=== PATIENT | male | born 1960 | race Caucasian/White ===

== ENCOUNTER → 2017-12-18 10:33 | Outpatient (CLI) | payer BC, SELFPAY ==
[2017-12-18 11:56] LABS: Cholesterol 230 mg/dL (50-200); HDL Cholesterol 41 mg/dL (40-60); TSH (W/Ref FT4) 0.45 uIU/mL (0.358-3.74); Triglyceride 173 mg/dL (30-150)
[2017-12-18 14:03] LABS: LDL CHOLESTEROL 154 mg/dL (<100)
[2017-12-18 14:12] LABS: Uric Acid 7.8 mg/dL (3.5-7.2)
== END ==
PROVIDERS: PCP Family Medicine; Visit Provider Family Medicine
DX: E78.5 Hyperlipidemia, unspecified (principal); E03.9 Hypothyroidism, unspecified; M1A.0790 Idiopathic chronic gout, unspecified ankle and foot, without tophus (tophi)
CPT/HCPCS: 80061; 83721; 84443; 84550

== ENCOUNTER 2018-03-19 15:31 | Outpatient (REF) | payer BC, SELFPAY ==
[2018-03-19 20:41] LABS: Anion Gap 7.6 mmol/L (3-11); BUN 17 mg/dL (7-18); CO2 29.4 mmol/L (21.0-32.0); CREATININE 1.11 mg/dL (0.70-1.30); Calcium 9.5 mg/dL (8.5-10.1); Chloride 102 mmol/L (98-107); Glucose 100 mg/dL (70-100); Potassium 4.1 mmol/L (3.5-5.1); Sodium 139 mmol/L (136-145); TSH 0.27 uIU/mL (0.358-3.74)
== END 2018-03-19 15:51 ==
LOC: NCHCN 15:31
PROVIDERS: PCP Physician Assistant Medical; Visit Provider Physician Assistant Medical
DX: N28.9 Disorder of kidney and ureter, unspecified (principal); E03.9 Hypothyroidism, unspecified
CPT/HCPCS: 80048; 84443

== ENCOUNTER 2018-09-08 12:14 | Outpatient (REF) | payer BC, SELFPAY ==
[2018-09-08 19:37] LABS: Anion Gap 8.1 mmol/L (3-11); BUN 16 mg/dL (7-18); CO2 27.9 mmol/L (21.0-32.0); CREATININE 1.11 mg/dL (0.70-1.30); Calcium 8.5 mg/dL (8.5-10.1); Chloride 105 mmol/L (98-107); Cholesterol 246 mg/dL (50-200); Glucose 95 mg/dL (70-100); HDL Cholesterol 41 mg/dL (40-60); LDL CHOLESTEROL 150 mg/dL (<100); Potassium 4.3 mmol/L (3.5-5.1); Sodium 141 mmol/L (136-145); TSH 3.63 uIU/mL (0.358-3.74); Triglyceride 235 mg/dL (30-150)
== END 2018-09-08 12:34 ==
LOC: NCHCN 12:14
PROVIDERS: PCP Physician Assistant Medical; Visit Provider Physician Assistant Medical
DX: Z00.00 Encounter for general adult medical examination without abnormal findings (principal); E03.9 Hypothyroidism, unspecified; E78.5 Hyperlipidemia, unspecified
CPT/HCPCS: 80048; 80061; 83721; 84443

== ENCOUNTER 2019-10-21 02:05 | Outpatient (CLI) | payer BC, SELFPAY ==
--- NOTE | 2019-10-21 | DI.RAD_ITS ---
EXAM: XR CHEST 2V PA LATERAL CLINICAL HISTORY: GOITER, SUBSTERNAL E04.8, TECHNIQUE: COMPARISON: CR PORTABLE CHEST ONE VIEW from 08/20/2016 FINDINGS: The heart is not enlarged. There are multiple sternal sutures and mediastinal vascular clips consist ent with prior CABG surgery. Lungs are clear. No pleural effusion. 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 No gross superior mediastinal mass identified by plain f ilm criteria, additional evaluation with CT could be obtained if clinically indicated. IMPRESSION: No evidence of acute process.
== END 2019-10-21 02:25 ==
PROVIDERS: PCP Internal Medicine; Visit Provider Physician Assistant
DX: E04.8 Other specified nontoxic goiter (principal); Z95.1 Presence of aortocoronary bypass graft
CPT/HCPCS: 71046

== ENCOUNTER 2019-10-21 08:03 | Outpatient (CLI) | payer BC, SELFPAY ==
[2019-10-21 10:21] LABS: Abs Immature Grans 0.03 k/cumm (0.0-0.09); Absolute Basophil Count 0.02 k/cumm (0.0-0.2); Absolute Eosinophil Count 0.11 k/cumm (0.0-0.7); Absolute Lymphocyte Count 2.06 k/cumm (1.2-3.4); Absolute Monocyte Count 0.59 k/cumm (0.11-0.7); Absolute Neutrophil Count 5.06 k/cumm (1.2-6.7); Basophils % 0.3; Eosinophils % 1.4; HCT 44.4 % (40.0-50.0); HGB 14.9 g/dL (13.5-17.5); Immature Grans % 0.4 %; Lymphocytes % 26.2; Mean Corp. HGB Concentration 33.6 g/dL (32.0-36.0); Mean Corpuscular Hemoglobin 27.5 pg (27.0-33.0); Mean Corpuscular Volume 82.1 fL (80-95); Mean Platelet Volume 9.3 fL (8.0-11.0); Monocytes % 7.5; Neutrophils % 64.2; Platelet Count 300 x1000/uL (130-400); RBC 5.41 m/cumm (4.50-6.00); RBC Distribution Width 13.9 % (11.8-14.1); White Blood Cell Count 7.87 k/cumm (4.4-10.8)
[2019-10-21 10:31] LABS: Hemoglobin A1C 5.9 % (3.8-5.6)
[2019-10-21 11:34] LABS: ALT 88 U/L (16-63); AST 44 U/L (15-37); Alkaline Phosphatase 109 U/L (46-116); Anion Gap 2.9 mmol/L (3-11); BUN 14 mg/dL (7-18); Bilirubin, Total 0.9 mg/dL (0.2-1.0); CO2 31.1 mmol/L (21.0-32.0); CREATININE 1.11 mg/dL (0.70-1.30); Calcium 8.6 mg/dL (8.5-10.1); Calculated LDL 156 mg/dL (<100); Chloride 107 mmol/L (98-107); Cholesterol 245 mg/dL (<200); Glucose 101 mg/dL (74-106); HDL Cholesterol 44 mg/dL (40-60); Sodium 141 mmol/L (136-145); TSH 1.34 uIU/mL (0.36-3.74); Triglyceride 226 mg/dL (<150)
[2019-10-21 11:59] LABS: FREE T4 1.33 ng/dL (0.76-1.46)
== END 2019-10-21 08:23 ==
PROVIDERS: PCP Internal Medicine; Visit Provider Physician Assistant
DX: E03.9 Hypothyroidism, unspecified (principal); E78.5 Hyperlipidemia, unspecified; K21.9 Gastro-esophageal reflux disease without esophagitis; I48.0 Paroxysmal atrial fibrillation; M10.9 Gout, unspecified; J45.20 Mild intermittent asthma, uncomplicated; R73.9 Hyperglycemia, unspecified; L40.9 Psoriasis, unspecified
CPT/HCPCS: 36415; 80053; 80061; 83036; 84439; 84443; 85025

== ENCOUNTER 2019-11-13 01:42 | Outpatient (CLI) | payer BC, SELFPAY ==
[2019-11-13 09:44] LABS: Iron 109 ug/dL (65-175); Total Iron Binding Capacity 339 ug/dL (250-450); Transferrin Sat 32 % (20-55)
[2019-11-13 09:57] LABS: Ferritin 166 ng/mL (26-388)
[2019-11-16 11:01] LABS: Hepatitis C Ab w Rflx HCV PCR Negative (Negative)
== END 2019-11-13 02:02 ==
PROVIDERS: PCP Physician Assistant; Visit Provider Physician Assistant
DX: R73.03 Prediabetes (principal); E04.8 Other specified nontoxic goiter; E03.9 Hypothyroidism, unspecified; E78.5 Hyperlipidemia, unspecified; R74.8 Abnormal levels of other serum enzymes; Z11.59 Encounter for screening for other viral diseases
CPT/HCPCS: 36415; 86803; 82728; 83540; 83550

== ENCOUNTER 2019-11-13 03:26 | Outpatient (CLI) | payer BC, SELFPAY ==
--- NOTE | 2019-11-13 | DI.US_ITS ---
EXAM: US ABDOMEN CLINICAL HISTORY: ELEVATED LIVER ENZYMES, R74.8 TECHNIQUE: Ultrasound performed using standard protocol. COMPARISON: CT CHEST FOR PULMONARY EMBOLUS from 08/20/2016 FINDINGS: The liver appears somewhat heterogeneous and increased in echogenicity. There is probable small area of focal fatty sparing adjacent to the falciform ligament. No evidence of cholelithiasis. A small gallbladder polyp is noted. No gallbladder wall thickening. No biliary dilatation. Pancreas appears intact as visualized. The kidneys are unremarkable in appearance bilaterally with no evidence of a renal mass, hydronephros is, or nephrolithiasis. Spleen is unremarkable in appearance. Abdominal aorta and IVC are of normal diameter. IMPRESSION: Echogenic heterogeneous liver, possibly mildly enlarged. Findings may represent hepatic steatosis, o ther etiologies including hepatitis not excluded, please correlate clinically. DATA REPOSITORY:
== END 2019-11-13 03:46 ==
PROVIDERS: PCP Physician Assistant; Visit Provider Physician Assistant
DX: R74.8 Abnormal levels of other serum enzymes (principal); R16.0 Hepatomegaly, not elsewhere classified; K82.4 Cholesterolosis of gallbladder
CPT/HCPCS: 76700